=== PATIENT | female | born 1950 | race Caucasian/White ===

== ENCOUNTER 2019-07-15 13:01 | Inpatient (IN) | payer MEDICARE ==
[~2019-07-15] VITALS: Ht 157.5 cm; Wt 65.8 kg
[~2019-07-15 13:01] MED LIST: ALBUTEROL INHAL17 GM IH; AMITRIPTYLINE H10 M1; GEMFIBROZIL 60600 MG PO; IBUPROFEN 600600 M1 PO; LOPRESSOR 50 MG50 M1 PO; LORTAB 5 MG/5001 TA1 PO; LORTABELXR PO; NORCO 5-325 TA1 EACH PO; PENICILLIN VK500 M1 PO; PERCOCET 5-3251 EACH PO; PREDNISONE50 MG PO; REBIF PO; SIMVASTATIN40 MG; VALIUM5 MG PO; VENTOLIN HFA 1818 GM INH; VITAMIN B-12500 MCG PO; ZANTAC 150MG T150 M1; ZPAK PO
[2019-07-15 13:05] VITALS: BP 206/113
[2019-07-15 13:32] LABS: ABSOLUTE EOSINOPHILS 0.1 thou/uL (0.0-0.7); ABSOLUTE LYMPHOCYTES 0.9 thou/uL (0.8-5.3); ABSOLUTE MONOCYTES 0.3 thou/uL (0.0-1.2); ABSOLUTE NEUTROPHILS 2.4 thou/uL (1.6-8.1); BASOPHILS 1.2 %; EOSINOPHILS 2.1 %; HEMATOCRIT 34.9 % (37.0-47.0); HEMOGLOBIN 12.2 gm/dL (12.0-15.0); LYMPHOCYTES 24.1 %; MCH 31.4 pg (26.0-34.0); MCHC 34.9 g/dL (28.0-37.0); MCV 89.8 fL (80.0-100.0); MPV 8.8 fl. (7.2-11.1); NUCLEATED RBCS 0 /100WBC; PLATELET COUNT* 140 thou/uL (150-400); POLYS 63.6 %; RBC 3.89 mil/uL (4.20-5.00); RDW-CV 15.9 % (10.5-14.5); WBC 3.7 thou/uL (4.0-11.0)
[2019-07-15 13:41] LABS: CALCIUM 9.2 mg/dL (8.5-10.1); CREATININE 1.1 mg/dL (0.6-1.3); POTASSIUM 3.9 mmol/L (3.5-5.1)
[2019-07-15 13:46] LABS: ALBUMIN 3.1 g/dL (3.4-5.0); TOTAL BILIRUBIN 0.5 mg/dL (<0.1-1.0); TOTAL PROTEIN 7.3 g/dL (6.4-8.2)
[2019-07-15 15:31] VITALS: BP 166/79
[2019-07-15 16:00] VITALS: BP 154/82
--- NOTE | 2019-07-15 19:01 | NUR ---
PT ARRIVED FROM ER AROUND 1600. ADMISSION ASSESSMENT AND QUESTIONS COMPLETED CHARTED. ABLE TO MAKE NEEDS KNOWN. FIANCE AT BEDSIDE. GOING DOWN TO MRI AT THIS TIME. NO C/O PAIN OR DISCOMFORT. RESTING IN BED AT THIS TIME. UP WITH 1 ASSIST. WILL CONTINUE TO MONITOR.
[2019-07-15 20:00] VITALS: BP 169/87
[2019-07-16 00:50] VITALS: BP 165/89
--- NOTE | 2019-07-16 01:00 | NUR ---
TRANSFERRED PT CARE TO [facility] IN STABLE CONDITION.
[2019-07-16 04:00] VITALS: BP 131/69
[2019-07-16 04:36] LABS: CHOLESTEROL 144 mg/dL (<200); HDL CHOLESTEROL 18 mg/dL (>40); TRIGLYCERIDE 428 mg/dL (<150); VLDL 86 mg/dL (<40)
[2019-07-16 04:43] LABS: LDL CHOLESTEROL ND mg/dL (<100); SERUM ASSESSMENT Clear
--- NOTE | 2019-07-16 07:53 | NUR ---
RECEIVED REPORT AND ASSUMED CARE AT 0130. VSS. CARDIAC MONITORING IN PLACE. NIH=5. MRI RESULTS CALLED TO NEURO PHYSICIAN. NO NEW ORDERS RECEIVED. HOURLY ROUNDING COMPLETED AND ALL NEEDS MET.
[2019-07-16 08:00] VITALS: BP 161/83
[2019-07-16 11:30] VITALS: BP 178/85
[2019-07-16 16:00] VITALS: BP 179/93
--- NOTE | 2019-07-16 19:36 | NUR ---
ASSUMED PT CARE AT 0730. ASSESSMENT COMPLETED CHARTED. ABLE TO MAKE NEEDS KNOWN. NO C/O PAIN OR DISCOMFORT. NIH 5. FAMILY AT BEDSIDE. RESTING IN BED MOST OF THE TIME. UP WITH 1 ASSIST. WILL CONTINUE TO MONITOR.
[2019-07-16 20:00] VITALS: BP 179/77
[2019-07-17] VITALS: BP 151/89
[2019-07-17 02:05] LABS: GLYCOHEMOGLOBIN (HGB A1C) 5.5 % (4.8-5.6)
[2019-07-17 04:00] VITALS: BP 116/69; BP 154/84
--- NOTE | 2019-07-17 06:55 | NUR ---
PT HAS RESTED T/O NIGHT WITHOUT COMPLAINTS. PT NOTED THAT WEAKNESS WITH AMBULATION APPEARS TO BE IMPROVING. PT PROGRESSING TOWARDS GOALS.MEDS GIVEN BY EMAR. CALL LIGHT WITHIN REACH
[2019-07-17 08:00] VITALS: BP 174/83
[2019-07-17 12:00] VITALS: BP 161/87
--- NOTE | 2019-07-17 12:03 | NUR ---
MET WITH PT AND S/O TO DISCUSS HOME SITUATION/DC PLANNING. PT STATES SHE IS NORMALLY INDEPENDENT AND FAIRLY ACTIVE. HAS WALKER BUT DOESN'T USE IT. ADMITTED WITH CVA. HAS THERAPY AND REHAB EVAL, AWAITING DECISIONS. WILL FOLLOW
[2019-07-17 16:00] VITALS: BP 171/84
--- NOTE | 2019-07-17 16:22 | EKG ---
[place] [address] ELECTROCARDIOGRAM REPORT Name: JESSICADEX SYDNEY Room: [address] ADM IN [facility].#: [id number] Admission: 07/15/19 Attend Phys: José Miguel Ulrich Discharge: Date of : 54 Report #: [id number] THIS REPORT FOR: //name// [facility] ED Test Date: 2019-07-15 Test Time: 13:14:44 Pat Name: DEX LOPEZ Department: Room: [facility] Gender: F Cooperative Extension Agent: SAUL : 1950 Requested By: Michael Plata Order Number: [id number] MD: Maurisio Leyva Measurements Intervals [place] Rate: 100 P: 65 MT: 144 QRS: 74 QRSD: 79 T: 45 QT: 363 QTc: 469 Interpretive Statements Sinus tachycardia Baseline wander in lead(s) V6 Compared to ECG 07/26/2011 09:41:55 No significant changes Electronically Signed On 07-17-2019 16:22:13 CDT by Maurisio Leyva [email or web address] <ELECTRONICALLY SIGNED> By: Maurisio Leyva MD, FACC 07/17/19 1622 1314 1314 Maurisio Leyva MD, FACC /EPI
--- NOTE | 2019-07-17 17:24 | 2DMMODE ---
[place] [address] 2 D/M-MODE ECHOCARDIOGRAM Name: DEX LOPEZ Room: [address] IN [facility]#: [id number] Admission: 07/15/19 Attend Phys: Asif Lyles Discharge: Date of : 54 Date of Service: 07/17/19 1724 Report #: [id number] THIS REPORT FOR: //name// ADDENDUM APPROVED REPORT Study performed: 07/17/2019 12:01:41 EXAM: Comprehensive 2D, Doppler, and color-flow Echocardiogram Patient Location: In-Patient Room #: [facility] Status: routine BSA: 1.68 HR: 74 bpm BP: 154/84 mmHg Rhythm: NSR Other Information Study Quality: Good Indications CVA/TIA Hypertension/HDD Echo Enhancing Agent Indication: Rule out Shunt Agent(s) / Amount(s) Used: Agitated Saline 10 cc 2D Dimensions IVSd: 8.24 (7-11mm) LVOT Diam: 21.33 (18-24mm) LVDd: 46.20 mm PWd: 9.65 (7-11mm) Ascending Ao: 34.33 (22-36mm) LVDs: 29.74 (25-40mm) Aortic Root: 32.45 mm Volumes Left Atrial Volume (Systole) LA ESV Index: 21.40 mL/m2 Aortic Valve AoV Peak Kyree.: 0.95 m/s AO Peak Gr.: 3.64 mmHg LVOT Max P.01 mmHg AO Mean Gr.: 2.21 mmHg LVOT Mean P.02 mmHg LVOT Max V: 0.71 m/s AO V2 VTI: 19.91 cm LVOT Mean V: 0.48 m/s ISHAAN (VTI): 3.08 cm2 LVOT V1 VTI: 17.16 [place] [address] 2 D/M-MODE ECHOCARDIOGRAM Name: DEX LOPEZ Room: [address] IN [facility].#: [id number] Admission: 07/15/19 Attend Phys: Asif Lyles Discharge: Date of : 54 Date of Service: 07/17/19 1724 Report #: [id number] Mitral Valve E/A Ratio: 0.71 MV Decel. Time: 196.83 ms MV E Max Kyree.: 0.83 m/s MV PHT: 57.08 ms MVA (PHT): 3.85 cm2 TDI E/Lateral E': 10.38 E/Medial E': 11.86 Medial E' Kyree.: 0.07 m/s Lateral E' Kyree.: 0.08 m/s Pulmonary Valve PV Peak Kyree.: 0.75 m/s PV Peak Gr.: 2.22 mmHg Tricuspid Valve RAP Estimate: 5.00 mmHg TR Peak Gr.: 27.11 mmHg RVSP: 32.00 mmHg PA Pressure: 32.00 mmHg Left Ventricle The left ventricle is normal size. There is normal LV segmental wall motion. There is normal left ventricular wall thickness. Left ventricular systolic function is normal. LVEF is 55-60%. Grade I - abnormal relaxation pattern. Right Ventricle The right ventricle is normal size. The right ventricular systolic function is normal. Atria The left atrium size is normal. Interatrial septum is intact without evidence of ASD or PFO. The right atrium size is normal. Aortic Valve The aortic valve is normal in structure. No aortic regurgitation is present. There is no aortic valvular stenosis. Mitral Valve The mitral valve is normal in structure. There is no mitral valve regurgitation noted. No evidence of mitral valve stenosis. Tricuspid Valve The tricuspid valve is normal in structure. Mild pulmonary hypertension. Trace tricuspid [place] [address] 2 D/M-MODE ECHOCARDIOGRAM Name: TERRIE LOPEZERIE SYDNEY Room: [address] IN [facility]#: [id number] Admission: 07/15/19 Attend Phys: Asif Lyles Discharge: Date of : 54 Date of Service: 07/17/19 1724 Report #: [id number] Pulmonic Valve The pulmonary valve is normal in structure. Trace pulmonic regurgitation. Great Vessels The aortic root is normal in size. IVC is normal in size and collapses >50% with inspiration. Pericardium Mild circumferential pericardial effusion. <Conclusion> The left ventricle is normal size. There is normal left ventricular wall thickness. Left ventricular systolic function is normal. LVEF is 55-60%. Grade I - abnormal relaxation pattern. Interatrial septum is intact without evidence of ASD or PFO. Mild pulmonary hypertension. Trace tricuspid regurgitation. IVC is normal in size and collapses >50% with inspiration. Mild circumferential pericardial effusion. <ELECTRONICALLY SIGNED> By: Jacob Hernandez MD, FACC 07/17/191723 23 23 Jacob Hernandez MD, FACC /INF
--- NOTE | 2019-07-17 19:02 | NUR ---
ASSUMED PT CARE AT 0730, FULL ASSESMENT DONE CHARTED. PT A/O X4, UP WITH ASSIST, NEEDS REENFORCEMENT TO ASK FOR HELP AND WAIT FOR HELP. VSS, SR ON THE MONITOR. DENIES PAIN, IS WEAK. GOOD APITITE. FALL PRECAUTIONS IN PLACE. WILL CONTINUE WITH PLAN OF CARE.
[2019-07-17 20:15] VITALS: BP 163/72
[2019-07-18] VITALS: BP 133/84
[2019-07-18 01:12] LABS: URINE BILIRUBIN NEGATIVE (Negative); URINE BLOOD TRACE (Negative); URINE COLOR YELLOW; URINE GLUCOSE-RANDOM NEGATIVE (Negative); URINE KETONES NEGATIVE (Negative); URINE LEUKOCYTES-REFLEX TRACE (Negative); URINE NITRITE-REFLEX NEGATIVE (Negative); URINE PROTEIN 2+ (Negative); URINE SPECIFIC GRAVITY 1.025 (1.005-1.030); URINE UROBILINOGEN 0.2 E.U./dl (0.2-1.0)
[2019-07-18 01:17] LABS: URINE CLARITY HAZY
[2019-07-18 01:33] LABS: CASTS None Seen /LPF (None Seen); SQUAMOUS 4-10 Moderate /LPF (0-3)
[2019-07-18 01:34] LABS: URINE RBC 3-10 Few /HPF (0-2)
[2019-07-18 01:35] LABS: BACTERIA-REFLEX >30 Many /HPF (None Seen); CRYSTALS None Seen /LPF (None Seen)
[2019-07-18 04:00] VITALS: BP 126/85
[2019-07-18 04:27] LABS: HEMATOCRIT 32.6 % (37.0-47.0); HEMOGLOBIN 11.4 gm/dL (12.0-15.0); MCH 31.2 pg (26.0-34.0); MCHC 35.1 g/dL (28.0-37.0); MCV 88.9 fL (80.0-100.0); MPV 9.3 fl. (7.2-11.1); RBC 3.66 mil/uL (4.20-5.00); RDW-CV 15.8 % (10.5-14.5); WBC 4.1 thou/uL (4.0-11.0)
[2019-07-18 05:03] LABS: CALCIUM 8.8 mg/dL (8.5-10.1); CREATININE 1.1 mg/dL (0.6-1.3)
[2019-07-18 08:00] VITALS: BP 174/94
--- NOTE | 2019-07-18 10:23 | NUR ---
RECEIVED REPORT AND ASSUMED CARE AT 1900.. VSS. CARDIAC MONITORING IN PLACE. PT DENIES COMPLAINTS OF PAIN. ASSESSMENT COMPLETED CHARTED. PT UP WITH ASSIST TO BSC. BED LOCKED IN LOWEST POSITION, CALL LIGHT WITHIN REACH, BED ALARM ON. NO ACUTE CHANGES THROUGH THE NIGHT. HOURLY ROUNDING COMPLETED AND ALL NEEDS MET
--- NOTE | 2019-07-18 11:00 | NUR ---
SPOKE WITH [facility], PT HAS BEEN ACCEPTED TO IN REHAB. WILL UPDATE PT AND
--- NOTE | 2019-07-18 11:47 | NUR ---
[employer]cb Draftsman: Met with patient and family today. Reviewed stroke program. Patient planning to go to inpatient rehab today. Plans to return home with regular activities. Is experiencing fatigue, dicussed possible management throughout day time activities. Discussed secondary stroke prevention and risk factors. Answered questions. continue to have weakness on right side, no change since admission.
[2019-07-18] MEDS ORDERED: ASA5UEC PO (14:28)
--- NOTE | 2019-07-18 15:13 | NUR ---
ORDERS NOTED FOR DC TO REHAB. CALL TO [facility], THEY WILL ACCEPT TODAY. ORDERS FAXED TO REHAB UNIT. PT AND NURSE AWARE
[2019-07-18 16:18] VITALS: BP 174/94
--- NOTE | 2019-07-18 16:52 | NUR ---
IV AND TELE DISCONTIUED. REPORT CALLED TO 3RD FLOOR REHAB.
== END 2019-07-18 17:24 | DRG 65 ==
LOC: M.ERS 13:01 → M.2W 14:37 → M.TBA-ER 14:37 → M.2W 15:41
PROVIDERS: Emergency Medicine Emergency Medical Services; Family Medicine; Psychiatry & Neurology Neurology; ADMIT Internal Medicine
DX: I63.9 Cerebral infarction, unspecified (principal); R65.10 Systemic inflammatory response syndrome (SIRS) of non-infectious origin without acute organ dysfunction; D61.818 Other pancytopenia; F17.210 Nicotine dependence, cigarettes, uncomplicated; J45.909 Unspecified asthma, uncomplicated; E78.1 Pure hyperglyceridemia; I10 Essential (primary) hypertension; G35 Multiple sclerosis; Z79.899 Other long term (current) drug therapy; Z88.2 Allergy status to sulfonamides; Z88.6 Allergy status to analgesic agent; Z82.3 Family history of stroke; Z82.49 Family history of ischemic heart disease and other diseases of the circulatory system

== ENCOUNTER 2019-07-18 16:37 | Inpatient (IN) | payer MEDICARE ==
[~2019-07-18] VITALS: Ht 157.5 cm; Wt 60.8 kg
[~2019-07-18 16:37] MED LIST changes: +ASA5UEC PO
[2019-07-18 17:00] VITALS: BP 168/88
--- NOTE | 2019-07-18 19:42 | NUR ---
PT. ARRIVED PER W/C TO UNIT AT 1645 ALERT ORIENTED PLEASANT COOPERATIVE. HX OF MS AND CVA RT. SIDE WEAKNESS ABLE TO MOVE ALL EXTREMETIES BUT HAS WEAKNESS IN PASTE UP ARTIST RT. HAND. TRANSFERS WITH 1 ASSIST NEEDS CUEING TO STAY WITHIN WALKER SAFETY CUES. VOIDED IN BSC SMALL AMT URINE HAD FISHY SMELL. ORIENTED TO ROOM AND REHAB ROUTINE. CALL LIGHT SYSTEM. ANSWERED ALL QUESTIONS ON ADMISSION ASSESSMENT. UMBERTOANCEE AND SISTER HERE WITH PT. DENIES PAIN OR CONCERNS.
[2019-07-18 20:45] VITALS: BP 163/98; BP 165/81
--- NOTE | 2019-07-18 20:45 | NUR ---
SITTING UP ON SIDE OF BED WATCHING TV. PATIENT'S SISTER IS STAYING IN THE ROOM ON FOLD OUT BED. DENIES DISCOMFORT. CALL LIGHT WITHIN REACH.
[2019-07-19 05:09] LABS: HEMATOCRIT 34.7 % (37.0-47.0); HEMOGLOBIN 11.9 gm/dL (12.0-15.0); MCH 31.2 pg (26.0-34.0); MCHC 34.3 g/dL (28.0-37.0); MPV 9.5 fl. (7.2-11.1); RBC 3.81 mil/uL (4.20-5.00); RDW-CV 15.9 % (10.5-14.5); WBC 3.4 thou/uL (4.0-11.0)
--- NOTE | 2019-07-19 05:33 | NUR ---
UP X ONE DURING THE NIGHT TO THE BEDSIDE COMMODE TO VOID. TRANSFERRED FROM BED TO BEDSIDE COMMODE WITH MODERATE ASSIST. DID OWN HYGIENE. MODERATE ASSIST WITH PULLING PANTS UP AND DOWN. TOOK MEDICATION WHOLE WITH WATER. HOURLY ROUNDING IN PROGRESS.
[2019-07-19 06:10] LABS: CALCIUM 8.9 mg/dL (8.5-10.1); CREATININE 1.3 mg/dL (0.6-1.3); POTASSIUM 4.4 mmol/L (3.5-5.1)
[2019-07-19 08:44] VITALS: BP 148/89
--- NOTE | 2019-07-19 13:24 | NUR ---
LUIGI and Dr Shipley met with pt to review team conference summary and plan to reteam next Wednesday to assess pt length of stay. Pt in agreement with plan. SW completed initial assessment. Pt lives at home with fiance and has been independent prior to CVA. Pt has RW but did not use it. No known hx of HH or SNF. SW to continue to follow to assist with safe dc planning.
--- NOTE | 2019-07-19 14:05 | NUR ---
AM ASSESSMENT AND VITAL SIGNS COMPLETED DOCUMENTED. PT HAS BEEN PLEASANT AND COOPERATIVE, WORKED WITH ALL THERAPIES. PT C/O FATIGUE WITH SO MUCH ACTIVITY BUT DENIES DISCOMFORT. FALL PRECAUTIONS AND HOURLY ROUNDING CONTINUE.
[2019-07-19 20:05] VITALS: BP 168/86
--- NOTE | 2019-07-19 20:10 | NUR ---
HERE VISITING. DENIES DISCOMFORT. CALL LIGHT WITHIN REACH. TOOK MEDICATION WHOLE WITH WATER.
--- NOTE | 2019-07-20 04:59 | NUR ---
RESTED QUIETLY. UP X TWO DURING THE NIGHT TO THE BATHROOM TO VOID. AMBULATES TO THE BATHROOM WITH CGA, GAITBELT, WALKER. HOURLY ROUNDING IN PROGRESS.
[2019-07-20 08:00] VITALS: BP 158/82
[2019-07-20 20:00] VITALS: BP 148/75
--- NOTE | 2019-07-21 05:24 | NUR ---
ASSUMED CARES AT 1920. ALERT AND ORIENTED. CVA WITH RIGHT SIDE WEAKNESS. DENIED ANY PAIN. MIN ASSIST WITH GAIT BELT AND WALKER. UP TO BATHROOM. NEEDS CUEING. SLEPT WELL. CALL LIGHT IN REACH AND BED ALARM ON.
[2019-07-21 08:32] VITALS: BP 151/84
--- NOTE | 2019-07-21 08:43 | NUR ---
Nutrition: Pt admitted to rehab with possible MS flare. Nursing risk 2 points, but [employer] wt hx shows usual wt of ~134# x multiple years. Current wt 133#. 2gm Na diet ordered. +BM. Albumin 3.1. H/o MS, asthma. RD will order Ensure Enlive for added nutrition intake. Consider Mild risk. Will follow weekly.
--- NOTE | 2019-07-21 18:15 | NUR ---
PT HAS PARTICIPATED WITH THERAPIES AND USUALLY CALLS FOR ASSIST WITH TRANSFERRS. PT AMBULATES TO BATHROOM WITH MOD ASSIST OF 1,GAITBELT AND WALKER. PT REMINDED TO JUMPBASTING FACING BASTER RT.FOOT WHEN WALKING OCCASIONALLY. PT ALERT AND ORIENTATED AND DENIES PAIN.
[2019-07-21 20:11] VITALS: BP 162/84
[2019-07-22 05:09] LABS: HEMOGLOBIN 12.1 gm/dL (12.0-15.0); MCH 31.3 pg (26.0-34.0); MCHC 34.5 g/dL (28.0-37.0); MCV 90.7 fL (80.0-100.0); MPV 9.9 fl. (7.2-11.1); RBC 3.86 mil/uL (4.20-5.00); RDW-CV 15.8 % (10.5-14.5); WBC 4.1 thou/uL (4.0-11.0)
--- NOTE | 2019-07-22 05:09 | NUR ---
ASSUMED CARE AT 1930. PATIENT RESTING IN CHAIR VISITING WITH FAMILY. ALERT AND ORIENTED. DENIES PAIN. UP WITH ONE, GAIT BELT, WALKER. DRAGS RT LEG AT TIMES, NEEDS CUEING. WEARS PERIPADS FOR STRESS INCONTINENCE. TAKES PILLS WHOLE WITH WATER. TURNS SELF. NO C/O PAIN. HOURLY ROUNDS CONTINUE. BED ALARM ON. CALL LITE IN REACH.
[2019-07-22 05:17] LABS: CREATININE 1.3 mg/dL (0.6-1.3); POTASSIUM 4.2 mmol/L (3.5-5.1)
[2019-07-22 07:54] VITALS: BP 151/82
--- NOTE | 2019-07-22 16:24 | NUR ---
ASSUMMED CARE OF PATIENT AT 0730,PT ALERT AND ORIENTED, PT TRANSFERS WITH ASSIST OF 1, GB WALKER, NEEDS CUEING,PT DOES LOOSE BALANCE AT TIMES, STATES HER RIGHT LEG GIVES OUT, PT COMPLAINS OF PAIN/SPASM IN RIGHT GROIN AREA AT TIMES, REFUSED NEED FOR PAIN MEDICATION, BACLOFEN GIVEN ORDERED. PT INCONTINENT OF SMALL AMOUNT OF STOOL, VOIDS PER TOILET, TAKING FOOD AND FLUIDS WELL, PARTICIPATED IN ALL THERAPIES, HOURLY ROUNDING COMPLETED, ASSESSMENT COMPLETE, WILL CONTINUE TO MONITOR.
[2019-07-22 20:00] VITALS: BP 164/94
[2019-07-23 05:11] LABS: ALBUMIN 2.8 g/dL (3.4-5.0); CALCIUM 8.7 mg/dL (8.5-10.1); CREATININE 1.2 mg/dL (0.6-1.3); TOTAL BILIRUBIN 0.4 mg/dL (<0.1-1.0); TOTAL PROTEIN 6.9 g/dL (6.4-8.2)
--- NOTE | 2019-07-23 06:26 | NUR ---
ASSUMED CARE AT 1930. FOUND PATIENT RETURNING FROM BATHROOM WITH ADRIANA GÓMEZ) USING WALKER WITH BENT OVER GAIT. THIS NURSE ASSISTED PATIENT BACK TO BED. SAFETY CONCERNS AND FALL PRECAUTIONS REINFORCED MANY TIMES THROUGH SHIFT. SHE DID BECOME BETTER ABOUT USING CALL LITE SHIFT PROGRESSED. WHEN TRANSFERRING, PATIENT DOES NOT PUT FULL WEIGHT ON RIGHT LEG. NEEDS MUCH CUEING. AFTER THIS, PATIENT USED BSC BECAUSE SHE WAS SO WEAK. UP WITH TWO FOR SAFETY BECAUSE SHE KEPT BUCKLING BEFORE REACHING THE BED AFTER VOIDING. HAD TWO BMS THIS SHIFT, SOFT AND BROWN. AROUND MIDNIGHT PATIENT SAID, "I WISH I HADN'T TAKEN THAT PILL." WHEN QUESTIONED, SHE MENTIONED SHE MEANT THE BACLOFEN, WHICH SHE SAYS SHE HAS NEVER TAKEN BEFORE. SHE WANTED NOT TO TAKE THE 0600 DOSE UNTIL IT WAS DISCUSSED FURTHER. THIS DOSE HELD AT THIS TIME. TAKES PILLS WHOLE WITH WATER. TURNS SELF IN BED. HOURLY ROUNDS CONTINUE. BED ALARM ON. CALL LITE IN REACH.
[2019-07-23 09:03] VITALS: BP 144/78
--- NOTE | 2019-07-23 16:52 | NUR ---
ASSUMMED CARE OF PT AT 0730, PT ALERT AND ORIENTED, FORGETFUL, TRANSFERS WITH MIN ASSIST GB WALKER, NEEDS CUEING, AMBULATES TO BATHROOM, MODERATE BM THIS SHIFT, TAKING FOOD AND FLUIDS WELL, DENIES PAIN, PT REFUSING BACLOFEN SHE FEELS IT MAKES HER WEAKER, UP IN CHAIR MUCH OF SHIFT, REFUSED BATHING OR GROOMING THIS SHIFT, HOURLY ROUNDING COMPLETED, ASSESSMENT COMPLETE, WILL CONTINUE TO MONITOR.
[2019-07-23 19:00] VITALS: BP 143/80
--- NOTE | 2019-07-24 05:19 | NUR ---
ASSUMED CARE AT 1930. FAMILY LEFT SHORTLY AFTER 1930. PATIENT'S MENTATION IS VERY MUCH IMPROVED OVER LAST NIGHT. HAVING LESS PROBLEMS WITH WORD SEARCHING. UP WITH MIN ASSIST TO BSC THROUGH NIGHT. DOES ALL CARES. VOIDS CIPRIANO URINE. TAKES PILLS WHOLE WITH WATER. NO C/O PAIN. HOURLY ROUNDS CONTINUE. BED ALARM ON. CALL LITE IN REACH.
[2019-07-24 07:06] VITALS: BP 136/84
--- NOTE | 2019-07-24 15:57 | NUR ---
ASSUMMED CARE OF PT AT 0730, PT ALERT AND ORIENTED, PT TRANSFERS WITH MIN ASSIST GB WALKER CUEING, TAKING FOOD AND FLUIDS WELL, AMBULATES TO BATHROOM, VOIDS IN ADEQUATE AMOUNTS, BM X 1 THIS SHIFT, DENIES PAIN, PARTICIPATED IN ALL THERAPIES, HOURLY ROUNDING COMPLETED, ASSESSMENT COMPLETE WILL CONTINUE TO MONITOR.
[2019-07-24 19:45] VITALS: BP 141/79
--- NOTE | 2019-07-24 19:45 | NUR ---
AWAKENED FOR VITAL SIGNS AND REASSESSMENT. DENIES DISCOMFORT. CALL LIGHT WITHIN REACH.
--- NOTE | 2019-07-25 05:15 | NUR ---
UP TO THE BATHROOM X 3 THIS SHIFT. AMBULATES WITH CGA, GAITBELT, WALKER. SOMETIMES DRAGS THE RIGHT FOOT. DOES OWN SHERRIE CARE. NEEDS ASSIST WITH PULLING PANTS UP AND DOWN DUE TO RIGHT HEMIPARESIS. HOURLY ROUNDING IN PROGRESS.
[2019-07-25 07:18] VITALS: BP 145/85
--- NOTE | 2019-07-25 15:19 | NUR ---
SW called and spoke with kulwinder treviño in preparation for team conference tomorrow. Kulwinder treviño hopeful for pt to continue therapies and continue progress towards regaining functional mobility and more independent with ADLs. Kulwinder treviño bought a tub transfer bench and is interested in HH services at dc to continue working with pt and for home safety suggestions. SW to continue to follow to assist with safe dc planning.
--- NOTE | 2019-07-25 17:52 | NUR ---
PT PARTICIPATES WITH THERAPIES AND CALLS FOR ASSIST NEEDED. PT CONTINENT OF B+B AND IS ABLE TO CLEANSE SELF AND ADJUST CLOTHING. PT AMBULATES WITH WALKER AND SBA OF 1 WITH OCCASIONAL REMINDERS TO NOT LET RT.FOOT DRAG. PT REMAINS ALERT AND ORIENTATED AND DENIES PAIN.
[2019-07-25 19:00] VITALS: BP 160/64
--- NOTE | 2019-07-26 00:44 | NUR ---
ASSUMED CARE @ 1939-07/25-.SITS IN BED VISITING W/ .BED ALARM ALREADY ON @ 1939.WEAK-RUE & RIGHT LE.TURNS SELF @ NIGHT.SBA FOR TOILETING & TRANSFERS.WANTS ALL LIGHTS OFF @ NIGHT & DOOR CLOSED @ NIGHT.ON HOURLY ROUNDS.AFTER BRP #2 @ 6451-REQUESTED 2% MILK & DRANK ALL FOR UPSET STOMACH. REFUSED PRN [place] WHEN OFFERED.
[2019-07-26 04:36] LABS: HEMATOCRIT 31.1 % (37.0-47.0); HEMOGLOBIN 10.6 gm/dL (12.0-15.0); MCH 31.1 pg (26.0-34.0); MCV 91.4 fL (80.0-100.0); MPV 9.7 fl. (7.2-11.1); RBC 3.4 mil/uL (4.20-5.00); RDW-CV 15.4 % (10.5-14.5); WBC 3.7 thou/uL (4.0-11.0)
[2019-07-26 04:48] LABS: ALBUMIN 2.6 g/dL (3.4-5.0); CALCIUM 9.4 mg/dL (8.5-10.1); CREATININE 1.1 mg/dL (0.6-1.3); POTASSIUM 3.9 mmol/L (3.5-5.1); TOTAL BILIRUBIN 0.6 mg/dL (<0.1-1.0)
--- NOTE | 2019-07-26 05:23 | NUR ---
SLEEPING SINCE 0 & SLEPT GOOD.AWAKE @ INTERVALS @ 2345,0245 & 0345 FOR BRP. BRP W/ SBA X4 DURING NIGHT.GI UPSET-RESOLVED.REFUSED HS SNACK.
[2019-07-26 07:33] VITALS: BP 153/79
[2019-07-26 08:30] VITALS: BP 153/79
--- NOTE | 2019-07-26 14:54 | NUR ---
LUIGI and Dr Shipley met with pt to review team conference and plan for pt to remain on rehab unit another week for team to reteam and pt to dc home next Thursday 08/02. Pt okay with plan. SW to follow to discuss pt fiance or other support to provide pt with assist and supervision with all tasks at all times. SW to continue to follow to assist with safe dc planning.
--- NOTE | 2019-07-26 17:38 | NUR ---
ALERT AND ORIENTED X4. UP WITH STAND BY ASSIST/CUEING, WALKER AND GAIT BELT. HAS RIGHT SIDED WEAKNESS. DENIES NEED FOR PAIN MEDICATION. CONTINENT OF BOWEL AND BLADDER. EATS AND TAKES PILLS WITHOUT DIFFICULTY. DENIES PAIN OR NAUSEA. CALL LIGHT WITHIN REACH. BED ALARM AND CHAIR ALARM USED. PROGRESSING TOWARD DISCHARGE GOAL. RECEIVING PT/OT/ST.
[2019-07-26 19:55] VITALS: BP 158/78
--- NOTE | 2019-07-26 20:00 | NUR ---
SITTING UP IN BED VISITING WITH FIANCEE AND DAUGHTER. DENIES DISCOMFORT. TOOK MEDS WHOLE WITH WATER. AMBULATED TO THE BATHROOM WITH CGA, GAITBELT, WALKER. DID OWN SHERRIE CARE. CALL LIGHT WITHIN REACH.
--- NOTE | 2019-07-27 05:51 | NUR ---
UP X 3 DURING THE NIGHT TO THE BATHROOM TO VOID. RESTED QUIETLY IN BETWEEN. HOURLY ROUNDING IN PROGRESS.
[2019-07-27 09:28] VITALS: BP 167/88
--- NOTE | 2019-07-27 15:32 | NUR ---
PT HAS PARTICIPATED WITH TTHERAPIES AND CALLS FOR ASSIST NEEDS. PT AMBULATES TO BATHROOM WITH MIN ASSIST OF WALKER,GAITBELT AND QUEING TO LIFT UP RT. FOOT. PT DENIES PAIN. PT IS CONTINENT OF B+B AND ABLE TO CLEANSE SELF AND ADJUST CLOTHING. PT REMAINS ALERT AND ORIENTATED.
[2019-07-27 19:45] VITALS: BP 158/80
--- NOTE | 2019-07-27 23:06 | NUR ---
ASSUMED CARE AT 1930. PATIENT RESTING IN BED, BED ALARM ON. ALARM SOUNDED, NEEDED TO VOID, BUT DID NOT CALL. FALL PRECAUTIONS REINFORCED. UP WITH SBA, GAIT BELT, WALKER, NEEDS CUEING TO KEEP FROM DRAGGING RIGHT FOOT. TURNS SELF. TAKES PILLS WHOLE, BUT LARGE ONES CUT IN HALF. WEARS PAD IN PANTIES. C/O THAT SHE IS STILL ON AUGMENTIN AND BLAMES THAT FOR FECAL URGENCY AT [facility]. NO C/O PAIN. HOURLY ROUNDS CONTINUE. BED ALARM ON. CALL LITE IN REACH.
[2019-07-28 04:28] LABS: HEMATOCRIT 31.7 % (37.0-47.0); HEMOGLOBIN 10.8 gm/dL (12.0-15.0); MCH 31.1 pg (26.0-34.0); MCHC 34.2 g/dL (28.0-37.0); MCV 90.8 fL (80.0-100.0); MPV 9.9 fl. (7.2-11.1); RBC 3.48 mil/uL (4.20-5.00); RDW-CV 15.5 % (10.5-14.5); WBC 3.7 thou/uL (4.0-11.0)
[2019-07-28 04:41] LABS: CALCIUM 8.9 mg/dL (8.5-10.1); CREATININE 1.1 mg/dL (0.6-1.3); MAGNESIUM 1.9 mg/dL (1.8-2.4); POTASSIUM 4.1 mmol/L (3.5-5.1)
--- NOTE | 2019-07-28 05:22 | NUR ---
SLEPT MOST OF THE NIGHT EXCEPT WHEN AWAKE TO VOID. VOIDED PER TOILET, GAIT MUCH IMPROVED SINCE WEDNESDAY NIGHT. DOES OWN CARES. ABLE TO GET LEGS INTO BED. NO C/O PAIN. HOURLY ROUNDS CONTINUE. BED ALARM ON. CALL LITE IN REACH.
--- NOTE | 2019-07-28 05:52 | NUR ---
C/O THAT THE ANTIBIOTICS GIVE HER DIARRHEA, DEFINED HAVING BMS AROUND 0300. PATIENT UP TO TOILET, VOIDED AND HAD SMALL, VERY FORMED BM. SHE OBSERVED STOOL BEING FORMED, YET STILL C/O ABOUT THE ANTIBIOTICS.
--- NOTE | 2019-07-28 09:13 | NUR ---
. PT ENCOURAGED AND GIVEN WATER AND TEA TO DRINK. PT HAS VOIDED WITH BLADDER SCAN AT 0
[2019-07-28 10:00] VITALS: BP 144/90
--- NOTE | 2019-07-28 16:11 | NUR ---
pt voiding well thru day and calls for assist to bathroom.pt ambulates with walker and min to sba of 1 with occasional reminders not to drag rt.foot.pt does not want to go to dinningroom for meals. pt has been continent of b+b.
[2019-07-28 19:30] VITALS: BP 146/80
--- NOTE | 2019-07-29 00:30 | NUR ---
ASSUMED CARE @ 1923-07/28-WEDNESDAY.AWAKE IN BED W/ HOB UP 90 DEGREES.DAUGHTER VISITING @ THIS TIME.BED ALARM PUT ON @ 1923.WEARS SHERRIE PAD.SUPERVISION FOR TOILETING.LIFTS RIGHT FOOT HIGHER NOW WHEN WALKING.WANTS DOOR CLOSED @ NIGHT. TURNS SELF @ NIGHT.ON HOURLY ROUNDS.
--- NOTE | 2019-07-29 05:13 | NUR ---
SLEPT EARLY SINCE 2100 & SLEPT GOOD ALL NIGHT.AWAKE @ INTERVALS X3 FOR BRP W/ ASSIST X3.REFUSED HS SNACKS.
[2019-07-29 08:00] VITALS: BP 164/91
--- NOTE | 2019-07-29 14:47 | NUR ---
ASSUMED CARE AT 0730. ALERT ORIENTED PLEASANT COOPERATIVE. HX OF CVA RT. SIDE WEAKNESS. TRANSFERS WITH SBA G BELT WALKER AMBULATED TO BR TO VOID HAS HAD 3 SOFT UNFORMED BMS. TODAY, STATES THIS IS NOT UNUSUAL EVEN BEFORE STROKE HAS URGENCY WITH VOIDING HX OF MS. WEARS PERIPADS. DENIES PAIN OR OTHER CONCERNS. FIANCEE HERE THIS AFTERNOON. USES CALL LIGHT APPROPRIATELY FOR ASSIST. TAKES MEDS WITHOUT DIFFICULTY. PARTICIPATING IN THERAPIES TODAY.
[2019-07-29 19:50] VITALS: BP 134/73
--- NOTE | 2019-07-30 00:51 | NUR ---
ASSUMED CARE @ 1914-07/29-SAT.SITS IN BED VISITING W/ GRAND DAUGHTER.BED ALARM ALREADY ON @ 1914.WANTS TO KEEP GAIT BELT ON DURING NIGHT BUT KEPT LOOSE. WEARS SHERRIE PAD.TURNS SELF @ NIGHT.WANTS DOOR CLOSED @ NIGHT ALSO.ON HOURLY ROUNDS.
--- NOTE | 2019-07-30 05:22 | NUR ---
REFUSED HS SNACK.SLEEPING SINCE 2099 & SLEPT GOOD.AWAKE @ INTERVALS FOR BRP W/ SBA X4.
[2019-07-30 08:00] VITALS: BP 149/79
--- NOTE | 2019-07-30 15:11 | NUR ---
ASSUMED CARE AT 0730. ALERT ORIENTED PLEASANT COOPERATIVE. HX OF CVA RT. SIDE WEAKNESS. TRANSFERS WITH SBA G BELT WALKER AMBULATES TO BR TO VOID AND HAS HAD 2 BMS THIS MORNING. FEEDS SELF TAKES MEDS WITH WATER WITHOUT DIFFICULTY. USES CALL LIGHT APPROPRIATELY.
--- NOTE | 2019-07-30 15:46 | NUR ---
PT. HAS RESTED IN BED AND ALSO UP IN CHAIR MOST OF THE DAY. VALENTIN VISITED TODAY. DENIES PAIN OR CONCERNS.
[2019-07-30 19:57] VITALS: BP 128/67
--- NOTE | 2019-07-31 00:19 | NUR ---
ASSUMED CARE @ 1914-07/30-WEDNESDAY.APPEARS SLEEPING ALREADY IN BED @ THIS TIME. ON HER LEFT SIDE.TURNS SELF @ NIGHT.WEARS GAIT BELT ALREADY & WANTS ON ALL NIGHT SINCE PATIENT HAS URGENCY.WEARS SHERRIE PAD.DRAGS RIGHT FOOT WHEN AMBULATING.VERBAL CUES TO LIFT RIGHT FOOT HIGHER WHILE WALKING.WANTS DOOR CLOSED ALL NIGHT.SBA FOR TOILETING.ON HOURLY ROUNDS.
--- NOTE | 2019-07-31 05:08 | NUR ---
SLEEPING EARLY @ 1915 & SLEPT GOOD ALL NIGHT.AWAKE FOR BRP W/ SBA X4.REFUSED HS SNACK.
[2019-07-31 08:09] VITALS: BP 154/87
--- NOTE | 2019-07-31 15:37 | NUR ---
ASSUMED CARE AT 0730. ALERT ORIENTED PLEASANT COOPERATIVE. HX OF CVA RT. SIDE WEAKNESS. TRANSFERS WITH SBA G BELT WALKER AND AMBULATES TO BR FOR TOILETING. HAS VOIDED AND HAD 1 MOD FORMED BM. ABLE TO DO HYGEINE AND CLOTHING ADJUSTMENTS. USES CALL LIGHT APPROPRIATELY FOR ASSISTANCE. APPETITE GOOD TAKES MEDS WITHOUT DIFFICULTY. PARTICIPATING IN THERAPIES. DENIES PAIN OR CONCERNS. VALENTIN BROUGHT WALKER FROM HOME PER THERAPY REQUEST.
[2019-07-31 19:45] VITALS: BP 149/80
--- NOTE | 2019-07-31 22:55 | NUR ---
ASSUMED CARE AT 1930. PATIENT RESTING IN BED. TURNS SELF WITHOUT DIFF. VOIDS PER TOILET. UP WITH GAIT BELT, WALKER. NO LOOSE BM THUS FAR. TAKES PILLS WHOLE WITH WATER. SPEECH IMPROVED. NO C/O PAIN. HOURLY ROUNDS CONTINUE. BED ALARM ON. CALL LITE IN REACH.
--- NOTE | 2019-08-01 06:31 | NUR ---
SLEPT MOST OF THE NIGHT EXCEPT TO VOID. TO TOILET 5 TIMES, VOIDED EACH, HAD TWO FORMED BMS. DOES OWN SKIN CARE. UP WITH GAIT BELT, WALKER, SBA. NO C/O PAIN. HOURLY ROUNDS CONTINUE. USES CALL LITE APPROPRIATELY.
[2019-08-01 08:16] VITALS: BP 146/77
--- NOTE | 2019-08-01 11:07 | NUR ---
SW called pt kamila Glynn in preparation for team conference tomorrow. Renard did not answer the phone so SW left a detailed message about Renard to call back if any questions or concerns to present to team and in preparation for pt to possibly be able to dc after team conference to home with HH. SW to discuss pt/family preferences for HH agency and arrange and SW to continue to follow to assist with safe dc planning.
--- NOTE | 2019-08-01 15:57 | NUR ---
ASSUMMED CARE OF PT AT 0730, PT ALERT AND ORIENTED, PT TRANSFERS WITH MIN ASSIST GB WALKER, PT HAS WALKER BROUGHT IN FROM HOME, NEEDS CUEING TO REMEMBER TO LOCK AND UNLOCK BRAKES, PT VOIDS PER TOILET, REFUSED TO EAT MEALS IN DININGROOM, BM THIS SHIFT,DENIES PAIN,TAKING FOOD AND FLUIDS WELL, UP IN CHAIR MOST OF SHIFT, PARTICIPATED IN ALL THERAPIES, HOURLY ROUNDING COMPLETED, ASSESSMENT COMPLETE, WILL CONTINUE TO MONITOR.
[2019-08-01 19:00] VITALS: BP 117/68
--- NOTE | 2019-08-01 19:55 | NUR ---
AWAKENED FOR HS REASSMENT AND MEDICATION PASS. DENIES DISCOMFORT. CALL LIGHT WITHIN REACH.
--- NOTE | 2019-08-02 05:34 | NUR ---
UP X 3 THIS SHIFT TO THE BATHROOM TO VOID. HAD A BM THIS MORNING. GETTING MORE PROFICIENT WITH NEW WALKER. HOURLY ROUNDING IN PROGRESS.
[2019-08-02 07:36] VITALS: BP 144/78
[2019-08-02 10:21] VITALS: BP 144/78
[2019-08-02] MEDS ORDERED: FLORANEX TABLE1 EACH PO (13:08)
[2019-08-02 15:08] VITALS: BP 144/78
--- NOTE | 2019-08-02 15:19 | NUR ---
PT EDUCATED PROVIDED TO PT AND SO IN REGARDS TO PT SAFETY AND USE OF WALKER, WHEN AT HOME COMPLETING SELFCARES. PT DEMONSTRATED AND REPORTED SHE UNDERSTOOD WELL PT SO.
--- NOTE | 2019-08-02 15:51 | NUR ---
PT READY TO GO HOME WITH . DISCUSSED DISCHARGE TO HOME AND FOLLOW UP APPOINTMENTS AND FALL PREVENTION. PT REMAINS ALERT AND ORIENTATED.
--- NOTE | 2019-08-02 15:52 | NUR ---
Team conference held today. LUIGI and Dr Shipley met with pt to review team conference summary and plan for pt to dc home with today. Pt kamila met with therapy prior to dc for therapy to explain safety concerns. LUIGI discussed HH services to follow and ordering of RW with pt and pt kamila; both in agreement with plan and SW faxed order for RW to [facility], order for HH to [facility] per pt choice and accepted; services to begin on Wednesday. Pt to provide pt ride home and provide any needed assistance and supervision. [facility] [phone] [facility] [phone]
== END 2019-08-02 15:54 | disposition home health service (06) | DRG 56 ==
LOC: M.REH 16:37
PROVIDERS: Family Medicine; ADMIT Physical Medicine & Rehabilitation
DX: I69.351 Hemiplegia and hemiparesis following cerebral infarction affecting right dominant side (principal); I63.9 Cerebral infarction, unspecified; E43 Unspecified severe protein-calorie malnutrition; G35 Multiple sclerosis; J45.909 Unspecified asthma, uncomplicated; E78.1 Pure hyperglyceridemia; I10 Essential (primary) hypertension; R26.9 Unspecified abnormalities of gait and mobility; Z88.6 Allergy status to analgesic agent; Z88.2 Allergy status to sulfonamides; Z68.24 Body mass index [BMI] 24.0-24.9, adult

== ENCOUNTER 2021-07-05 10:15 | Emergency (ER) | payer MEDICARE ==
[~2021-07-05] VITALS: Ht 157.5 cm; Wt 53.1 kg
[~2021-07-05 10:15] MED LIST changes: +FLORANEX TABLE1 EACH PO
[2021-07-05] MEDS ORDERED: LISINOPRIL20 MG PO (10:33)
[2021-07-05] MEDS ORDERED: ASA81BEC PO (10:33)
[2021-07-05] MEDS ORDERED: CALCIUM CARBON500 MG PO (10:33)
[2021-07-05] MEDS ORDERED: TOPROL XL50 MG PO (10:33)
[2021-07-05] MEDS ORDERED: VITAMIN E67 MG PO (10:34)
[2021-07-05] MEDS ORDERED: VITAMIN D3 COM1 EACH PO (10:35)
[2021-07-05] MEDS ORDERED: [UNRECOGNIZED DRUG - OTHER] PO (10:35)
[2021-07-05 10:50] LABS: ABSOLUTE EOSINOPHILS 0.1 thou/uL (0.0-0.7); ABSOLUTE LYMPHOCYTES 0.9 thou/uL (0.8-5.3); ABSOLUTE MONOCYTES 0.5 thou/uL (0.0-1.2); ABSOLUTE NEUTROPHILS 4.3 thou/uL (1.6-8.1); BASOPHILS 0.7 %; EOSINOPHILS 2.3 %; HEMATOCRIT 34.7 % (37.0-47.0); HEMOGLOBIN 12.1 gm/dL (12.0-15.0); LYMPHOCYTES 14.8 %; MCH 32.8 pg (26.0-34.0); MCHC 34.9 g/dL (28.0-37.0); MCV 93.9 fL (80.0-100.0); MPV 9.4 fl. (7.2-11.1); NUCLEATED RBCS 0 /100WBC; PLATELET COUNT* 141 thou/uL (150-400); POLYS 74.2 %; RBC 3.69 mil/uL (4.20-5.00); WBC 5.8 thou/uL (4.0-11.0)
[2021-07-05 11:01] LABS: CALCIUM 8.8 mg/dL (8.5-10.1); CREATININE 2.1 mg/dL (0.6-1.3); POTASSIUM 3.8 mmol/L (3.5-5.1)
[2021-07-05 11:05] LABS: ALBUMIN 2.8 g/dL (3.4-5.0); MAGNESIUM 1.9 mg/dL (1.8-2.4); TOTAL BILIRUBIN 0.5 mg/dL (<0.1-1.0); TOTAL PROTEIN 6.9 g/dL (6.4-8.2)
--- NOTE | 2021-07-05 11:05 | EKG ---
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1950 Requested By: Michael Plata Order Number: [id number] MD: Maurisio Leyva Measurements Intervals [place] Rate: 103 P: 92 MO: 138 QRS: 74 QRSD: 109 T: 74 QT: 332 QTc: 435 Interpretive Statements Sinus tachycardia Probable left atrial enlargement Low voltage, extremity and precordial leads Borderline repolarization abnormality Compared to ECG 07/15/2019 13:14:44 Low QRS voltage now present Electronically Signed On 07-05-2021 11:05:34 CDT by Maurisio Leyva [email or web address] <ELECTRONICALLY SIGNED> By: Maurisio Leyva MD, FACC 07/05/21 1105 1029 1029 Maurisio Leyva MD, [facility] /EPI
[2021-07-05 13:10] VITALS: BP 146/72
--- NOTE | 2021-07-06 10:19 | EKG ---
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 : 1950 Requested By: Michael Plata Order Number: [id number] MD: Maurisio Leyva Measurements Intervals [place] Rate: 82 P: 148 VA: 142 QRS: 86 QRSD: 81 T: 103 QT: 350 QTc: 409 Interpretive Statements Sinus or ectopic atrial rhythm artifact noted Probable left atrial enlargement Borderline right axis deviation Borderline low voltage, extremity leads Nonspecific repol abnormality, diffuse leads Compared to ECG 07/05/2021 10:29:31 Sinus tachycardia no longer present Electronically Signed On 07-06-2021 10:19:46 CDT by Maurisio Leyva [email or web address] <ELECTRONICALLY SIGNED> By: Maurisio Leyva MD, FACC 07/06/21 1019 1234 1234 Maurisio Leyva MD, FACC /EPI
== END 2021-07-05 13:10 | disposition home or self-care (01) ==
LOC: M.ERS 10:15
PROVIDERS: Emergency Medicine Emergency Medical Services
DX: R07.89 Other chest pain (principal); J45.909 Unspecified asthma, uncomplicated; E78.5 Hyperlipidemia, unspecified; Z86.73 Personal history of transient ischemic attack (TIA), and cerebral infarction without residual deficits; Z79.899 Other long term (current) drug therapy; Z79.82 Long term (current) use of aspirin; Z88.5 Allergy status to narcotic agent; Z88.2 Allergy status to sulfonamides